=== PATIENT | female | born 1975 | race Caucasian/White ===

== ENCOUNTER 2020-08-03 11:51 | Emergency (ER) | payer SELFPAY ==
[~2020-08-03] VITALS: Ht 157.5 cm; Wt 56.7 kg
[2020-08-03 11:53] VITALS: BP 121/65
--- NOTE | 2020-08-03 11:56 | NUR ---
biba to RADHA howell.
--- NOTE | 2020-08-03 12:27 | NUR ---
PT AMB TO [facility]
--- NOTE | 2020-08-03 12:37 | NUR ---
see complete assessment.
[2020-08-03] MEDS ORDERED: HYDROXYZINE HYDROCHLORIDE 25 MG TAB PO STA (12:59)
[2020-08-03] MEDS ORDERED: ACETAMINOPHEN EXTRA STRENGTH 500 MG TAB PO ONE (13:00)
[2020-08-03 13:17] LABS: BASOPHILS % (AUTO) 0.8 % (0.0-2.0); EOSINOPHILS % (AUTO) 0.5 % (0.0-4.0); HEMATOCRIT 40.5 % (36-48); HEMOGLOBIN 13.6 g/dL (12.0-16.0); LYMPHOCYTES # (AUTO) 1.4 K/uL (2.5-16.5); LYMPHOCYTES % (AUTO) 22.5 % (20.5-51.1); MEAN CORPUSCULAR HEMOGLOBIN 30 pg (27-31); MEAN CORPUSCULAR HGB CONC 34 g/dL (33-37); MEAN CORPUSCULAR VOLUME 87.6 fL (80-94); MONOCYTES # (AUTO) 0.5 K/uL (0.8-1.0); MONOCYTES % (AUTO) 8.1 % (1.7-9.3); NEUTROPHILS # (AUTO) 4.3 K/uL (1.8-7.7); NEUTROPHILS % (AUTO) 68.1 % (42.2-75.2); PLATELET COUNT (AUTO) 298 K/uL (140-450); RED BLOOD CELL COUNT(AUTO) 4.62 MIL/uL (4.20-5.40); RED CELL DISTRIBUTION WIDTH 14.6 % (11.6-13.7); WHITE BLOOD COUNT (AUTO) 6.3 K/uL (4.8-10.8)
[2020-08-03 13:28] LABS: ANION GAP 12.5 (8-16); CARBON DIOXIDE 25.3 mmol/L (21-32); CREATININE 0.8 mg/dL (0.6-1.3); POTASSIUM 3.8 mmol/L (3.5-5.1)
--- NOTE | 2020-08-03 14:09 | NUR ---
Patient discharged with v/s stable. Written and verbal after care instructions given and explained. Patient alert, oriented and verbalized understanding of instructions. Ambulatory with steady gait. All questions addressed prior to discharge. ID band removed. Patient advised to follow up with PMD. Rx of ACETAMINOPHEN, RAGLAN & BENADRYL given. Patient educated on indication of medication including possible reaction and side effects. Opportunity to ask questions provided and answered.
[2020-08-03 14:10] VITALS: BP 121/65
== END 2020-08-03 14:09 | disposition home or self-care (01) ==
LOC: MED 11:51
DX: F41.9 Anxiety disorder, unspecified (principal); R07.9 Chest pain, unspecified; R51.9 Headache, unspecified
CPT/HCPCS: 36415; 80048; 84484; 85025; 93005; 99284